=== PATIENT | male | born 1965 | race Caucasian/White ===

== ENCOUNTER 2016-12-26 21:17 | Emergency (ER) | payer MEDICARE ==
[2016-12-26] MEDS ORDERED: Clindamycin 150 MG CAP ONE (21:41)
== END 2016-12-26 21:45 | disposition home or self-care (01) ==
LOC: MADERS 21:17
DX: L03.114 Cellulitis of left upper limb (principal); I25.2 Old myocardial infarction; E78.5 Hyperlipidemia, unspecified; F31.9 Bipolar disorder, unspecified; F17.210 Nicotine dependence, cigarettes, uncomplicated; Z79.82 Long term (current) use of aspirin; Z79.899 Other long term (current) drug therapy; Z79.891 Long term (current) use of opiate analgesic; W57.XXXA Bitten or stung by nonvenomous insect and other nonvenomous arthropods, initial encounter
CPT/HCPCS: 99282

== ENCOUNTER 2017-11-13 18:37 | Emergency (ER) | payer MEDICARE ==
[2017-11-13] MEDS ORDERED: HYDROcodone/Acetaminophen 5/325 mg Tablet ONE (18:55)
[2017-11-13] MEDS ORDERED: Dexamethasone 4 MG TAB ONE (18:56)
--- NOTE | 2017-11-13 20:29 | RAD ---
CHEST TWO VIEW 11/13/17 HISTORY: Cough. COMPARISON: CT chest 02/07/17, FINDINGS: the exam was limited due to patient's arms being in the field of view. A right basilar opacity. This is new. The remainder of the lungs are clear. Cardiac silhouette and mediastinal contours are similar . IMPRESSION: Right basilar opacity and concern for pneumonia. Followup after treatment recommended. POS: [facility]
== END 2017-11-13 19:35 | disposition home or self-care (01) ==
LOC: MADERS 18:37
DX: J11.00 Influenza due to unidentified influenza virus with unspecified type of pneumonia (principal); I25.2 Old myocardial infarction; F31.9 Bipolar disorder, unspecified; E78.5 Hyperlipidemia, unspecified
CPT/HCPCS: 71046; J7620; J8540